=== PATIENT | male | born 1980 | race Caucasian/White ===

== ENCOUNTER 2020-08-24 11:52 | Emergency (ER) | payer MEDICAID, SELFPAY ==
[2020-08-24 12:03] VITALS: BP 112/69; PULSE 82; RESP 18; TEMP 36.7; O2SAT 97; BMI 21.9
--- NOTE | 2020-08-24 12:21 | ED.DENTAL ---
HPI - Dental/Oral General Chief complaint: Dental/Oral Stated complaint: DENTAL INFECTION Time Seen by Provider: 08/24/20 12:21 History of Present Illness HPI Narrative: Patient complains of left upper tooth infection that now has some facial swelling, no difficulty breathing or swallowing code denies any swelling under the tongue, no fever no chills Related Data Previous Rx's Medication Instructions Recorded clindamycin HCl 300 mg PO Q6H 7 Days #28 cap 08/24/20 ibuprofen 600 mg PO Q6H PRN #20 tab 08/24/20 Allergies Allergy/AdvReac Type Severity Reaction Status Date / Time No Known Allergies Allergy Verified 08/24/20 12:06 excessive shrimp consumption Allergy Unknown facial itch Uncoded 12/02/16 00:00 c Review of Systems Review of Systems: Positive for left facial pain and left-sided dental pain Negatives are no fever no chills no dizziness no weakness no difficulty swallowing or breathing no chest pain no shortness of breath no neck pain no rash Yes all other systems are reviewed and are negative PMFSH Past Medical History Source: nursing notes reviewed Medical History (Updated 08/25/20 @ 00:00 by Shane Vila) No known health problems Social History Social History Advance Directives: No Advance Directives Information Provided: No Physical Exam Vital Signs: Vital Signs: Last Vital Signs Temp 98.0 F 08/24/20 12:03 Pulse 82 08/24/20 12:03 Resp 18 08/24/20 12:03 BP 112/69 08/24/20 12:03 Pulse Ox 97 08/24/20 12:03 Body Mass Index 21.9 General appearance no acute distress, and cooperative The pharynx exam the pharynx is not red uvula is midline mucous membranes are moist, voice is normal Dental exam the left upper incisor is very tender to the touch and decayed and there is a fluctuant gum abscess above the tooth, there is no trismus no drooling no swelling under the tongue no impairment of breathing or swallowing The neck is supple Respiratory no distress Skin no rashes Neuro no focal deficit Course Course Course Narrative: The fluctuant gum abscess above the decayed tooth is aspirated with an 18 gauge needle with discharge of copious pus, and patient is started on antibiotic Discharge Plan Discharge Clinical Impression: Dental abscess Patient Disposition: Home, Self-Care Additional Instructions: Follow with dentist for removal of broken tooth We are starting antibiotics Frequent rinse with warm salt water return any any time for fever, worse pain and swelling, any worse condition Prescriptions: New clindamycin HCl 300 mg capsule 300 mg PO Q6H 7 Days Qty: 28 RF: 0 ibuprofen 600 mg tablet 600 mg PO Q6H PRN (Reason: pain) Qty: 20 RF: 0 Interventions: ED Discharge Assessment Last Done: 08/24/20 12:36 Discharge Date/Time: 08/24/20 12:37
== END 2020-08-24 12:37 | disposition home or self-care (01) ==
PROVIDERS: Emergency Provider Emergency Medicine; PCP Student in an Organized Health Care Education/Training Program
DX: K04.7 Periapical abscess without sinus (principal); Z79.899 Other long term (current) drug therapy
CPT/HCPCS: 99283

== ENCOUNTER → 2021-07-17 10:28 | Outpatient (BNVA) | payer MEDICAID, SELFPAY | PROVIDERS: PCP Student in an Organized Health Care Education/Training Program; Visit Provider Surgery | DX: L98.9 Disorder of the skin and subcutaneous tissue, unspecified (principal) | CPT/HCPCS: 99202 ==

== ENCOUNTER → 2022-01-14 07:21 | Outpatient (REF) | payer MEDICAID, SELFPAY ==
--- NOTE | 2022-01-14 | ECG_ITS ---
Hook-up date: 2022-01-14 07:21:00 Duration: 24:47:00 Test Indications: PALPITATIONS Medications: 75052 QRS complexes 10 Ventricular ectopics which represent <1 % of total QRS comp. 17 Supraventricular ectopics which represent <1 % of total QRS comp. * Paced QRS complexs which represent % of total QRS comp. VENTRICULAR ECTOPY 10 Isolated 0 Bigeminal Cycles 0 Couplets 0 Runs 0 Beats in Runs * Beats LONGEST at * BPM at :: -- * Beats FASTEST at * BPM at :: -- SUPRAVENTRICULAR ECTOPY 13 Isolated 2 Couplets 0 Runs 0 Beats in Runs * Beats LONGEST at * BPM at :: -- * Beats FASTEST at * BPM at :: -- HEART RATES 46 MIN at 03:19:34 2022-01-15 76 AVG 162 MAX at 12:15:08 2022-01-14 LONGEST RR 1.3760 secs at 03:19:28 2022-01-15 S-T LEVELS Channel 1 - 128 mm at 07:21:00 2022-01-14 - 128 mm at 07:21:00 2022-01-14 Channel 2 - 128 mm at 07:21:00 2022-01-14 - 128 mm at 07:21:00 2022-01-14 Channel 3 - 128 mm at 02:64:01 -- - 128 mm at 02:64:01 Underlying rhythm is sinus; Average ventricular rate 76/min; range 46-162/min; Rare supraventricular and ventricular ectopy; No sustained arrhythmias; 'flutter' in patient diary associated with sinus rhythm. Referred By: Azul Cannon Overread By: MANDEEP PATRICK
--- NOTE | 2022-01-14 07:30 | CA_ITS ---
Transthoracic Echocardiogram Patient (Last, First, Middle): Cassius Wilks, Gender: Male Date of : 1980 Age: 41 Procedure Date: 01/14/2022 Procedure Type: Transthoracic Echocardiogram Location: OP Height: 180.34 cm Weight: 72.58 kg BSA: 1.92 m2 Heart Rate: bpm BP: 115 / 56 mmHg Product Safety Technical Assistant: Referring MD: Azul Cannon MD Symptoms: TACHYCARDIA, PALPITATIONS Study Quality: Fair ECG Rhythm: Sinus Conclusions: - The left ventricular systolic function is normal. The calculated ejection fraction is 58% by biplane method. - No obvious valvular pathology seen on this study. Findings Left Ventricle Normal left ventricular cavity size. There is normal left ventricular wall thickness. The left ventricular systolic function is normal. The calculated ejection fraction is 58% by biplane method. There is no evidence of regional wall motion abnormalities. Diastolic function is normal for age. Right Ventricle Normal right ventricular cavity size and systolic function. Atria Both atria are normal in size. Aortic Valve There is a normal trileaflet aortic valve. There is no aortic valve stenosis. There is no aortic valve regurgitation. Mitral Valve The mitral valve appears normal. There is no mitral valve regurgitation. There is no mitral valve stenosis. Pulmonic Valve The pulmonic valve is likely normal. Tricuspid Valve Normal tricuspid valve structure. There is trace tricuspid valve regurgitation. The pulmonary artery systolic pressure is normal. Great Vessels The aortic annulus, sinuses of valsalva, and asc aorta are normal in size. Venous The inferior vena cava is normal in size and collapses greater than 50% with inspiration. Pericardium/Pleural There is no evidence of pericardial effusion. Prior Study Comparison No prior study available for comparison. Recommendations, Care & Conclusions No obvious valvular pathology seen on this study. Measurements 2D Linear Measurements IVSd: 0.81 0.6-0.9/0.6-1.0 cm LVIDd: 4.69 3.9-5.3/4.2-5.9 cm LVIDd Index: 2.44 2.4-3.2/2.2-3.1 cm/m2 LVIDs: 3.27 2.0-3.6 cm LVPWd: 0.81 0.7-1.1 cm Ao Root: 2.90 2.1-3.5 cm LA Diam: 3.00 2.7-3.8/3.0-4.0 cm LAIDs Index: 1.56 1.5-2.3 cm/m2 LV Mass: 154.13 67-162/88-224 g LV Mass Index: 80.27 43-95/49-115 g/m2 LVOT Diam: 2.10 3.0+(-)1.3 cm 2D Systolic Function EF 4C: 63.30 >55% EF 2C: 54.80 >55% EF BiP: 58.10 >55% Mitral Valve MV Pk E: 0.89 MV PK A: 0.58 MV Decel Time: 216.00 E/A: 1.50 E'Lateral: 15.60 E'Medial: 13.60 E/E' Med: 6.50 E/E' Lat: 5.70 PHT: 63.00 MVA PHT: 3.49 Decel Petroleum: 4.10 Aortic Valve AoV Pk Steve: 1.12 AoV Mn Steve: 0.73 AoV VTI: 0.27 AoV Pk Grad: 5.00 Aov Mn Grad: 3.00 JOSE Cont.VTI: 2.58 LVOT LVOT Pk Steve: 0.99 LVOT Mn Steve: 0.57 LVOT VTI: 0.20 LVOT Pk Grad: 4.00 LVOT Mn Grad: 2.00 LVOT Diam: 2.10 LVOT Area: 3.46 Diastolic Function MV Pk E: 0.89 MV Pk A: 0.58 E/A: 1.50 E'Medial: 13.60 E/E' Med: 6.50 E' Laterial: 15.60 E/E' Lat: 5.70 Right Ventricle TAPSE (mm): 24.00 TVS' Steve: 12.00 Tricuspid Valve TR Pk Steve: 2.10 TR Pk Grad: 18.00 RA Press: 3.00 RVSP: 21.00 Great Vessels Aorta Ao Root-2D: 2.90 2.0-3.7 cm Ao Asc: 2.80 2.1-3.4 cm Pulmonary Valve PV Pk Steve: 1.05 Peak PV Grad: 4.00 Updated in Other Vendor System with Status of Final Don Calle MD electronically signed on 01/16/2022 11:12:23 AM with status of Final
== END ==
LOC: HO.CARD 07:21
PROVIDERS: PCP Student in an Organized Health Care Education/Training Program; Visit Provider Family Medicine
DX: R00.0 Tachycardia, unspecified (principal); R00.2 Palpitations
CPT/HCPCS: 93226; 93306

== ENCOUNTER → 2022-04-27 13:43 | Outpatient (BNVA) | payer MEDICAID, SELFPAY | PROVIDERS: PCP Student in an Organized Health Care Education/Training Program; Referring Provider Student in an Organized Health Care Education/Training Program; Visit Provider Internal Medicine | DX: R00.2 Palpitations (principal); F17.210 Nicotine dependence, cigarettes, uncomplicated; Z71.6 Tobacco abuse counseling | CPT/HCPCS: 93005; 99202 ==

== ENCOUNTER 2022-06-26 02:38 | Emergency (ER) | payer MEDICAID, SELFPAY ==
[2022-06-26 02:41] VITALS: BP 102/64; PULSE 78; RESP 18; TEMP 36.7; O2SAT 98; BMI 22.3
--- NOTE | 2022-06-26 03:16 | ED_ITS ---
HPI - Dental/Oral General Chief complaint: Dental/Oral Stated complaint: toothache Time Seen by Provider: 06/26/22 03:16 Source: patient Mode of arrival: ambulatory Limitations: no limitations History of Present Illness HPI Narrative: Patient with chronic dental caries with loss of teeth multiple places comes here for pain in the upper jaw but last few days spreading to the left maxilla now no fever no chills has increased sensation to cold and hot Related Data Home Medications Medication Instructions Recorded Confirmed buprenorphine 8 mg-naloxone 2 mg 20 mg sublingual DAILY 04/27/22 04/27/22 sublingual film (Suboxone) Previous Rx's Medication Instructions Recorded clindamycin HCl 300 mg capsule 300 mg PO QID #40 caps 06/26/22 oxycodone 5 mg tablet 5 mg PO Q6H PRN pain #20 tabs 06/26/22 Allergies Allergy/AdvReac Type Severity Reaction Status Date / Time Penicillins Allergy Mild Unknown Verified 04/27/22 13:58 excessive shrimp consumption Allergy Unknown facial itch Uncoded 04/27/22 13:58 c Review of Systems Review of Systems: Yes all other systems are reviewed and are negative PMFSH Past Medical History Medical History No known health problems Smoking Surgical History H/O excision of mass [place] teeth removed Family History Family History Paternal Grandmother Breast cancer Paternal Aunt Breast cancer Father Lymphoma Social History Social History Alcohol intake: never Patient Tobacco Use Status: Former Tobacco user Advance Directives: No Advance Directives Information Provided: Yes Physical Exam 2 Vital Signs: Vital Signs: Last Vital Signs Temp 98.0 F 06/26/22 02:41 Pulse 78 06/26/22 02:41 Resp 18 06/26/22 02:41 BP 102/64 06/26/22 02:41 Pulse Ox 98 06/26/22 02:41 O2 Del Method 06/26/22 02:41 BMI result Body Mass Index 22.3 Appearance: Alert. Oriented X3. No acute distress. Eyes: PERRLA, No Nystagmus ENT: Pharynx normal. Oral Mucosa moist Neck: Normal inspection. Neck supple. CVS: Normal heart rate and rhythm. Pulses normal. Respiratory: No respiratory distress. Equal air entry bilateral, Neuro: Oriented X 3. No motor deficit. HEENT: Teeth image: 1. Multiple tooth loss local tenderness no significant gum swelling Discharge Plan Discharge Clinical Impression: Dental caries Patient Disposition: Home, Self-Care Instructions: Toothache (ED) Additional Instructions: Take antibiotic as prescribed Follow-up with dentist Prescriptions: New clindamycin HCl 300 mg capsule 300 mg PO QID Qty: 40 0RF oxycodone 5 mg tablet 5 mg PO Q6H PRN (Reason: pain) Qty: 20 0RF Rx Instructions: Partial Fill upon patient request. No Action buprenorphine-naloxone [Suboxone] 8-2 mg film 20 mg sublingual DAILY
[2022-06-26] MEDS: Clindamycin HCL 300 MG CAPSULE PO (03:31)
[2022-06-26] MEDS: oxyCODONE HCl Immed Release 5 MG TABLET PO (03:31)
== END 2022-06-26 03:35 | disposition home or self-care (01) ==
PROVIDERS: Emergency Provider Internal Medicine; PCP Student in an Organized Health Care Education/Training Program
DX: K08.89 Other specified disorders of teeth and supporting structures (principal); K08.409 Partial loss of teeth, unspecified cause, unspecified class
CPT/HCPCS: 99283

== ENCOUNTER 2024-04-30 04:44 | Emergency (ER) | payer OTHER, SELFPAY ==
[2024-04-30 04:48] VITALS: BP 126/76; PULSE 92; RESP 20; TEMP 36.5; O2SAT 98; BMI 23.7
--- NOTE | 2024-04-30 06:06 | ED.GENADULT ---
HPI - General Adult General Chief complaint: ETOH/Substance Use Stated complaint: withdrawl Time Seen by Provider: 04/30/24 06:06 History of Present Illness ED Provider: Zaynab GUZMAN narrative: The patient is a 44-year-old male who says that he has been on Suboxone for a long time. He is on Suboxone 8/2 films. He takes these twice a day. He says that during the last month he used few extra doses and ran out of his Suboxone before his next month supply. He comes to the emergency room because he is feeling symptoms of withdrawal. His last dose was yesterday morning when he took a half a film. He does not feel ill otherwise. Related Data Home Medications ?Medication ?Instructions ?Recorded ?Confirmed buprenorphine 8 mg-naloxone 2 mg 20 mg sublingual DAILY 04/27/22 04/27/22 sublingual film (Suboxone) Previous Rx's ?Medication ?Instructions ?Recorded clindamycin HCl 300 mg capsule 300 mg PO QID #40 caps 06/26/22 oxycodone 5 mg tablet 5 mg PO Q6H PRN pain #20 tabs 06/26/22 buprenorphine 8 mg-naloxone 2 mg 1 film buccal BID #2 ea 04/30/24 sublingual film (Suboxone) Allergies Allergy/AdvReac Type Severity Reaction Status Date / Time Penicillins Allergy Mild Unknown Verified 04/30/24 04:50 excessive shrimp consumption Allergy Unknown facial itch Uncoded 04/27/22 13:58 c Review of Systems Review of Systems: Yes all other systems are reviewed and are negative PMFSH Past Medical History Medical History No known health problems Smoking Surgical History H/O excision of mass [place] teeth removed Family History Family History Paternal Grandmother Breast cancer Paternal Aunt Breast cancer Father Lymphoma Social History Social History Unable to assess alcohol history related to: Unknown Alcohol intake: never Patient Tobacco Use Status: Former Tobacco user Substance Use Type: Prescription Drugs Substance Use Type Other:: suboxone Advance Directives: No Do you have a plan to hurt others: No Plan Physical Exam ED Vital Signs: Vital Signs - 24 hr 04/30/24 04:48 04/30/24 06:17 Temperature 97.7 F 97.7 F Pulse Rate 92 92 Respiratory Rate 20 20 Blood Pressure 126/76 126/76 Pulse Oximetry 98 98 Oxygen Delivery Method Room Air Room Air BMI result Body Mass Index 23.7 Const Other: The patient is awake and alert. The patient does not seem in acute distress. HENMT Other: Face is symmetrical. Mucous membranes moist. Eyes General: appearance normal, both eyes and all related structures Neck Neck: Yes full ROM Resp Effort & Inspection: normal respiratory effort Skin Other: Skin is dry and unremarkable Neuro Other: The patient is awake and alert with a normal mental status. Cognition is normal. Cranial nerves are grossly intact. The patient moves all extremities normally. The patient has a normal gait. Extrem Other: No peripheral edema Medications Administered Discontinued Medications Generic Name Dose Route Start Last Admin Trade Name Freq PRN Reason Stop Dose Admin Buprenorphine/Naloxone 1 film 04/30/24 06:09 04/30/24 06:12 Buprenorphine/Naloxone 8/2 Mg Film SUBLINGUAL 04/30/24 06:10 1 film ONCE ONE Administration Medical Decision Making Medical Decision Making [facility] Narrative: Patient seems to have a history of opioid use disorder and long-term Suboxone use. He has run out of his Suboxone early by overusing it. He does not seem acutely ill otherwise. He was given a film of 8 mg/2 mg of Suboxone this morning. I will write a prescription for 2 additional films of this dose. He should be able to get his usual monthly supply tomorrow on Wednesday. Discharge Plan Discharge Clinical Impression: Opioid use disorder Patient Disposition: Home, Self-Care Additional Instructions: You received a dose of Suboxone here. I have sent a prescription for 2 additional films up Suboxone to get you through till tomorrow when you can get an additional prescription through your regular prescriber. Return to the emergency room if significantly worse. Prescriptions: New buprenorphine-naloxone [Suboxone] 8-2 mg film 1 film buccal BID Qty: 2 0RF No Action clindamycin HCl 300 mg capsule 300 mg PO QID Qty: 40 0RF oxycodone 5 mg tablet 5 mg PO Q6H PRN (Reason: pain) Qty: 20 0RF Rx Instructions: Partial Fill upon patient request. buprenorphine-naloxone [Suboxone] 8-2 mg film 20 mg sublingual DAILY Referrals: Esthela Randolph MD [Primary Care Provider] - Interventions: ED Discharge Assessment Last Done: 04/30/24 06:17 Discharge Date/Time: 04/30/24 06:18 Print Language: Belarusian
[2024-04-30] MEDS: Buprenorphine/Naloxone 8/2 mg FILM 1 FILM SUBLINGUAL (06:12)
[2024-04-30 06:17] VITALS: BP 126/76; PULSE 92; RESP 20; TEMP 36.5; O2SAT 98
== END 2024-04-30 06:18 | disposition home or self-care (01) ==
PROVIDERS: Emergency Provider Emergency Medicine; PCP Student in an Organized Health Care Education/Training Program
DX: F11.23 Opioid dependence with withdrawal (principal); Z79.899 Other long term (current) drug therapy; Z87.891 Personal history of nicotine dependence
CPT/HCPCS: 99283; 99284

== ENCOUNTER 2024-06-14 10:51 | Emergency (ER) | payer OTHER, SELFPAY ==
[2024-06-14 11:09] VITALS: BP 113/70; PULSE 89; RESP 18; TEMP 36.7; O2SAT 98; BMI 22.1
--- NOTE | 2024-06-14 11:09 | ED_ITS ---
HPI - Dental/Oral General Chief complaint: Dental/Oral Stated complaint: Dental Infection Time Seen by Provider: 06/14/24 11:15 Source: patient, RN notes reviewed and old records reviewed Mode of arrival: ambulatory History of Present Illness ED Provider: Liseth Almaguer PA-C HPI Narrative: 44 yo M with no significant past medical history presenting to the ED c/o left- sided lower dental pain with suspected infection x2 days. States has been using chlorhexidine mouth rinse at home for 2 days without relief. Denies fever, chills, drainage from area, facial/oral swelling, difficulty or inability to swallow Related Data Home Medications ?Medication ?Instructions ?Recorded ?Confirmed buprenorphine 8 mg-naloxone 2 mg 20 mg sublingual DAILY 04/27/22 04/27/22 sublingual film (Suboxone) Previous Rx's ?Medication ?Instructions ?Recorded clindamycin HCl 300 mg capsule 300 mg PO QID #40 caps 06/26/22 oxycodone 5 mg tablet 5 mg PO Q6H PRN pain #20 tabs 06/26/22 buprenorphine 8 mg-naloxone 2 mg 1 film buccal BID #2 ea 04/30/24 sublingual film (Suboxone) amoxicillin 875 mg-potassium 1 tab PO BID 7 days #14 tabs 06/14/24 clavulanate 125 mg tablet Allergies Allergy/AdvReac Type Severity Reaction Status Date / Time No Known Allergies Allergy Verified 06/14/24 11:11 Review of Systems Review of Systems: Yes all other systems are reviewed and are negative Constitutional: Constitutional: Reports as per [facility] Past Medical History Attestation statement: The following information was validated with the patient. Source: old records reviewed Medical History Smoking No known health problems Surgical History H/O excision of mass [place] teeth removed Family History Family History Paternal Grandmother Breast cancer Paternal Aunt Breast cancer Father Lymphoma Social History Social History Unable to assess alcohol history related to: Unknown Alcohol intake: never Patient Tobacco Use Status: Former Tobacco user Substance Use Type: Prescription Drugs Physical Exam Vital Signs: Vital Signs: Last Vital Signs Temp 98.0 F 06/14/24 11:09 Pulse 89 06/14/24 11:09 Resp 18 06/14/24 11:09 BP 113/70 06/14/24 11:09 Pulse Ox 98 06/14/24 11:09 O2 Del Method Room Air 06/14/24 11:09 BMI result Body Mass Index 22.1 Const: General: cooperative, healthy appearing and no acute distress Orientation/consciousness: patient oriented x3 Limitations: no limitations HEENT: Other: + left lower 3rd molar broken. + mild gi ngival erythema/tenderness. No fluctuance/induration Head: Yes normal to inspection and Yes atraumatic Ears: hearing grossly normal bilaterally and external ears normal General nose exam: Normal external nose present Face and sinus: Yes normal facial exam Mouth: Normal oral and palatal mucosa present and no drooling Teeth and gingiva: caries, poor dentition and other Throat: Yes uvula midline, No peritonsillar mass, No uvula laterally displaced and No uvular edema Eyes: General: appearance normal, both eyes and all related structures EOM: EOMs intact bilaterally Neck: Neck: Yes normal visual inspection and Yes no meningeal signs Resp: Effort & Inspection: normal respiratory effort, no respiratory distress and no stridor Cardio: Rate: regular rate Skin: Rashes: no rashes Wounds: no wounds Neuro: General: patient oriented x3, tone normal and no meningeal signs Cranial nerves: Yes CN's II-XII intact bilaterally Gait exam (Neuro): Normal gait present Extrem: General: Yes normal to inspection Medical Decision Making Medical Decision Making MDM Narrative: 44 yo M with no significant past medical history presenting to the ED c/o left- sided lower dental pain with suspected infection x2 days. On exam vital signs stable, NAD, nontoxic appearing, physical exam as noted above. Concern for gingivitis vs dental infection/abscess. No drainable collection at this time. No appreciable facial swelling. No airway compromise. Plan: P.o. antibiotics, dentistry follow-up Please refer to course for remaining clinical decision making, interpretation of labs/imaging results, and discussions with consultants and/or family members. Results discussed with patient including worrisome signs and symptoms and strict return precautions, and when to return to the emergency department. They verbalized understanding and feel safe for discharge at this time. Differential Diagnosis Differential Diagnoses: The differential diagnosis associated with the presentation includes As above External Record Review External record reviewed: Inpatient record, Office record, Outpatient record, Prior outpatient labs, Prior outpatient radiology, Primary care record and Outside ED record Tests considered The following testing was considered but not selected: As above Prescription Management I considered prescription management with: Pain Medication and Antibiotic Chronic Conditions Patient?s care impacted by: Other Social Determinants Patient?s care significantly limited by Social Determinants of Health including: Inadequate housing and Alcoholism and drug addiction in family Discharge Plan Discharge Clinical Impression: Dental infection, Dental caries Patient Disposition: Home, Self-Care Instructions: Dental Abscess (ED) Additional Instructions: Augmentin as an antibiotic please take as prescribed until completion Take Tylenol and ibuprofen for pain/swelling You can continue to use mouthwash as needed You need to follow up with a dentist If her symptoms persist or worsen, pain becomes facial swelling difficulty inability to swallow return to the ED Prescriptions: New amoxicillin-pot clavulanate 875-125 mg tablet 1 tab PO BID 7 Days Qty: 14 0RF No Action clindamycin HCl 300 mg capsule 300 mg PO QID Qty: 40 0RF oxycodone 5 mg tablet 5 mg PO Q6H PRN (Reason: pain) Qty: 20 0RF Rx Instructions: Partial Fill upon patient request. buprenorphine-naloxone [Suboxone] 8-2 mg film 1 film buccal BID Qty: 2 0RF buprenorphine-naloxone [Suboxone] 8-2 mg film 20 mg sublingual DAILY Referrals: Trey Carballo [Dentist] - Femi Reddy DMD [Dentist] - Kevin Kim DMD [Dentist] - Print Language: Tamazight
[2024-06-14 11:19] VITALS: BP 113/70; PULSE 89; RESP 18; TEMP 36.7; O2SAT 98
== END 2024-06-14 11:21 | disposition home or self-care (01) ==
PROVIDERS: Emergency Provider Student in an Organized Health Care Education/Training Program; PCP Student in an Organized Health Care Education/Training Program
DX: K02.9 Dental caries, unspecified (principal)
CPT/HCPCS: 99282; 99283

== ENCOUNTER 2024-10-08 17:26 | Emergency (ER) | payer OTHER, SELFPAY ==
--- NOTE | ~2024-10-08 | CT_ITS ---
CLINICAL HISTORY: Left mouth floor cellulitis, no fluctuation. CT soft tissue neck with contrast Comparison: None Findings: The visualized intracranial contents are unremarkable. Pharyngeal mucosal space, parapharyngeal fat, prevertebral tissues, and epiglottis are within normal limits. Scattered prominent lymph nodes throughout the neck, may be reactive however are nonspecific. Diffuse bilateral maxillary and mandibular periapical lucencies, consistent with periodontal disease. Finding is most pronounced involving the left mandibular 3rd molar tooth. Minimal soft tissue edema with subcutaneous stranding and prominent lymph nodes along the left sublingual and submandibular space with mild thickening of the platysma. No discrete collections. No obstructing salivary duct stones. The left submandibular gland is mildly prominent relative to the right. No suspicious thyroid nodules. Mild paraseptal emphysema. No acute fracture or dislocation. Exaggeration of the cervical lordosis. IMPRESSION: 1. Diffuse odontogenic abscesses pronounced on the left. 2. Inflammatory changes in the left sublingual and submandibular spaces, may be secondary to above or sialoadenitis. This document has been electronically signed by: Dio Leung MD on 10/08/2024 19:39:41
[2024-10-08 17:32] VITALS: BP 134/72; PULSE 114; RESP 20; TEMP 39.1; O2SAT 98; BMI 24.4
--- NOTE | 2024-10-08 17:32 | ED_ITS ---
HPI - General Adult General Chief complaint: Dental/Oral Stated complaint: tooth pain/infection Time Seen by Provider: 10/08/24 17:59 Source: patient Mode of arrival: ambulatory Limitations: no limitations History of Present Illness ED Provider: DR. Ramey HPI narrative: 44-year-old male came in for evaluation of possible mouth infection since last week. Patient patient has widespread decay of his tooth with problem with the STs, infection started on right side of the lower gum and face that has improved after using chlorhexidine scrubs, patient he is here today because the left side now is tender and infected, having trouble chewing food due to pain, patient is complaining of subjective fever, found to be tachycardic in the emergency department. Patient did not take any antibiotic prior to her presentation today. Related Data Home Medications ?Medication ?Instructions ?Recorded ?Confirmed buprenorphine 8 mg-naloxone 2 mg 20 mg sublingual DAILY 04/27/22 04/27/22 sublingual film (Suboxone) Previous Rx's ?Medication ?Instructions ?Recorded clindamycin HCl 300 mg capsule 300 mg PO QID #40 caps 06/26/22 oxycodone 5 mg tablet 5 mg PO Q6H PRN pain #20 tabs 06/26/22 buprenorphine 8 mg-naloxone 2 mg 1 film buccal BID #2 ea 04/30/24 sublingual film (Suboxone) amoxicillin 875 mg-potassium 1 tab PO BID 7 days #14 tabs 06/14/24 clavulanate 125 mg tablet amoxicillin 875 mg-potassium 1 tab PO BID #20 tabs 10/08/24 clavulanate 125 mg tablet Allergies Allergy/AdvReac Type Severity Reaction Status Date / Time No Known Allergies Allergy Verified 10/08/24 17:33 Review of Systems 2 Review of Systems: All other systems are reviewed and are negative Constitutional: Reports as per HPI and Reports no additional constitutional complaints Eyes: Reports as per HPI and Reports no additional eye complaints Reports system reviewed and no additional complaints, except as documented Cardiovascular: Reports as per HPI and Reports no additional cardiovascular complaints Respiratory: Reports as per HPI and Reports no additional respiratory complaints Gastrointestinal: Reports as per HPI and Reports no additional gastrointestinal complaints Genitourinary: Reports no additional female genitourinary complaints Musculoskeletal: Reports no additional musculoskeletal complaints Skin/Breast: Reports system reviewed and no additional complaints, except as docu Psychiatric: Reports no additional psychiatric complaints Endocrine: Reports no additional endocrine complaints Hematologic/Lymphatic: Reports no additional hematologic/lymphatic complaints Allergic/Immunologic: Reports no additional allergic/immunologic complaints Reports system reviewed and no additional complaints, except as documented and Reports Abnormal speech present [facility] Past Medical History Medical History Smoking No known health problems Surgical History H/O excision of mass [place] teeth removed Family History Family History Paternal Grandmother Breast cancer Paternal Aunt Breast cancer Father Lymphoma Social History Social History Unable to assess alcohol history related to: Unknown Alcohol intake: former Patient Tobacco Use Status: Former Tobacco user Smoked in Last 30 Days: Yes Use of substances other than those prescribed or required for medical reasons: Yes Substance Use Type: Marijuana Substance Use Frequency: Chronic Longstanding Advance Directives: No Advance Directives Information Provided: No Physical Exam ED Vital Signs: Vital Signs - 24 hr 10/08/24 17:32 10/08/24 18:00 Temperature 102.3 F H 99.1 F Pulse Rate 114 H 113 H Respiratory Rate 20 20 Blood Pressure 134/72 103/62 Pulse Oximetry 98 96 Oxygen Delivery Method Room Air Room Air BMI result Body Mass Index 24.4 Vital signs have been reviewed and appear to be correct. Blood pressure elevated. Heart rate elevated, Respiratory rate normal. Febrile, Oxygen saturation normal. Appearance: Alert. Oriented X3. No acute distress. Head: Normal external exam. Normocephalic. Atraumatic. No Lopez signs noted. No raccoon eyes noted Eyes: PERRLA. EOMI. Conjunctiva and sclera normal. Eyelids normal. ENT: TM's Normal. Pharynx normal. Uvula midline. Moist mucous membranes. No trismus noted. No drooling noted. No muffled voice noted. Neck: Normal inspection. Neck supple. FROM. No adenopathy. Thyroid Normal. No meningeal signs. No neck mass noted. CVS: Normal heart rate and rhythm. Heart sound normal. No murmurs noted. Pulses normal throughout. Respiratory: No respiratory distress. Painless inspiration. Breath sounds normal. No wheezes/rales/rhonchi noted. Chest nontender. No accessory muscle usage noted or decreased air movement noted. Abdomen: Soft and nontender. Bowel sounds normal in all 4 quadrants. No distention noted. No organomegaly noted. No visible injury noted. Back: No CVA tenderness. Full range of motion noted. Skin: Skin warm and dry. Normal skin color. Normal skin turgor. No rashes/lesions/lacerations noted. Extremities: No lower extremity edema. Extremities exhibit normal range of motion. Extremities nontender. Neuro: Oriented X 3. Cranial nerve exam: II-XII are grossly intact No motor deficit. No sensory deficit. Reflexes normal. [facility] Teeth image: 2 1. Widespread decay, erythema of the gum around, no fluctuation, no abscess is appreciated. 2. Widespread decay, erythema of the gum around, no fluctuation, no abscess is appreciated. 3. Widespread decay, erythema of the gum around, no fluctuation, no abscess is appreciated. Neck Neck images: 2 1. Area of swelling, mild tenderness, no redness, no hotness. Course Course Course Narrative: This is an RME: Additional HPI, ROS, PE not included below will be deferred to primary provider. RME assessment and note performed by: Luz Ybarra PA-C This is a 44-year-old male, with no known medical problems, who presents emergency department with complaints of dental pain. Reports on Wednesday, October 03, he had right-sided dental pain. He states that this got better up until yesterday where he developed severe left-sided dental pain. He reports that he has had a hard time chewing and swallowing. He is currently on Suboxone, states that he took an extra dose to help with pain however this did not help. Patient febrile and tachycardic in triage. Patient will be brought back to the emergency room for further evaluation. Plan: Labs, EKG, Tylenol, further ER evaluation needed. Reevaluation(s) Reevaluation #1: case discussed with Dr. López and the plan was to admit the patient for IV antibiotic and follow-up as an outpatient with his dentist, because patient is feel better with decreased swelling on his left facial site after received left wrist IV antibiotic, patient wanted try oral antibiotic and he will follow-up with his dentist an outpatient. Will cancel admission and discharge on amoxicillin. Time: 22:42 Medications Administered Discontinued Medications Generic Name Dose Route Start Last Admin Trade Name Marla PRN Reason Stop Dose Admin Acetaminophen 975 mg 10/08/24 17:37 10/08/24 17:38 Acetaminophen 325 Mg Tablet PO 10/08/24 17:38 975 mg ONCE ONE Administration Iohexol 100 ml 10/08/24 18:54 10/08/24 18:54 Iohexol 350 Mg/Ml 100 Ml Infus..Btl IV 10/08/24 18:55 60 ml ONCE ONE Administration Medical Decision Making Differential Diagnosis Differential Diagnoses: The differential diagnosis associated with the presentation includes ( Dental abscess, gingivitis, sialadenitis, soft tissue neck infection,) Admission/Observation Consideration of admission/observation: Escalation of care including admission/observation considered Lab Data MDM Lab Attestation statement: I reviewed the patient's lab results. 10/08/24 18:06 10/08/24 18:06 Labs: Lab Results 10/08/24 Range/Units 18:06 WBC 9.4 (4.8-10.8) X10*3/uL RBC 4.33 L (4.60-5.80) X10*6/uL Hgb 14.1 (14.0-18.0) g/dl Hct 39.5 L (42.0-52.0) % MCV 91.2 (80.0-98.0) fL MCH 32.6 (27.0-33.0) pg MCHC 35.7 (31.0-36.0) g/dl RDW 13.1 (11.0-16.0) % Plt Count 198 (160-400) X10*3/uL MPV 9.1 L (9.4-12.4) fL Immature Gran % (Auto) 0.3 (0.0-0.4) % Neut % (Auto) 68.8 (45-73) % Lymph % (Auto) 19.5 L (20-40) % [place] % (Auto) 11.3 H (2-11) % Eos % (Auto) 0.0 (0-4) % Baso % (Auto) 0.1 (0-2) % Lymph # (Auto) 1.8 (1.2-4.9) X10*3/uL [place] # (Auto) 1.1 (0.1-1.2) X10*3/uL Eos # (Auto) 0.0 (0.0-0.4) X10*3/uL Baso # (Auto) 0.0 (0.0-0.2) X10*3/uL Abs Immat Gran (auto) 0.03 (0.00-0.03) X10*3/uL Absolute Neuts (auto) 6.4 (2.0-8.3) x10*3/uL Absolute Nucleated RBC 0.000 (0.0-0.012) X10*3/uL Nucleated RBC % (auto) 0.0 (0.0-0.2) /100WBC Sodium 134 L (135-145) mmol/L Potassium 3.8 (3.3-5.1) mmol/L Chloride 99 (96-108) mmol/L Carbon Dioxide 21 L (22-29) mmol/L Anion Gap 18 (12-20) BUN 12 (9-16) mg/dL Creatinine 0.71 (0.5-1.4) mg/dL Estim Creat Clear Calc 138.5 Estimated GFR > 60 Random Glucose 87 (60-115) mg/dL Lactic Acid 0.7 (0.5-2.0) mmol/L Calcium 9.2 (8.4-10.2) mg/dL Total Bilirubin 1.0 (0.0-1.0) mg/dL Direct Bilirubin 0.3 (0.0-0.5) mg/dL AST 22 (5-37) U/L ALT 15 (0-40) U/L Alkaline Phosphatase 82 (39-117) U/L Troponin I High Sens < 2.7 (<3.5-35.0) ng/L Total Protein 7.4 (6.5-8.0) g/dL Albumin 4.6 (3.5-5.0) g/dL Independent Interpretation I performed an independent interpretation of an: CT Scan ( soft tissue neck:The visualized intracranial contents are unremarkable. Pharyngeal mucosal space, parapharyngeal fat, prevertebral tissues, and epiglottis are within normal limits. Scattered prominent lymph nodes throughout the neck, may be reactive however are nonspecific. Diffuse bilateral maxi) Radiology Impression Discussion of test interpretation with radiology: I have reviewed the radiologist's reading. Discharge Plan Discharge Clinical Impression: Dental caries, Gingivitis Patient Disposition: Home, Self-Care Instructions: Gingivitis (ED) Additional Instructions: follow-up with your dentist within 1 week. Prescriptions: New amoxicillin-pot clavulanate 875-125 mg tablet 1 tab PO BID Qty: 20 0RF No Action clindamycin HCl 300 mg capsule 300 mg PO QID Qty: 40 0RF oxycodone 5 mg tablet 5 mg PO Q6H PRN (Reason: pain) Qty: 20 0RF Rx Instructions: Partial Fill upon patient request. amoxicillin-pot clavulanate 875-125 mg tablet 1 tab PO BID 7 Days Qty: 14 0RF buprenorphine-naloxone [Suboxone] 8-2 mg film 1 film buccal BID Qty: 2 0RF buprenorphine-naloxone [Suboxone] 8-2 mg film 20 mg sublingual DAILY Referrals: Esthela Randolph MD [Primary Care Provider] - Print Language: Moldovan
[2024-10-08] MEDS: Acetaminophen 325 MG TABLET 975 MG PO (17:38)
--- NOTE | 2024-10-08 17:38 | ECG_ITS ---
Test Reason : tachycardia Blood Pressure : */* mmHG Vent. Rate : 106 BPM Atrial Rate : 106 BPM P-R Int : 134 ms QRS Dur : 92 ms QT Int : 336 ms P-R-T Axes : 74 -10 66 degrees QTcB Int : 446 ms Sinus tachycardia Otherwise normal ECG When compared with ECG of 10-Jun-2005 03:17, Questionable change in QRS axis Referred By: Luz Ybarra Electronically Signed By: MANDEEP PATRICK
--- NOTE | 2024-10-08 17:43 | PC.NURSE ---
Charge nurse notified of potential sepsis alert
[2024-10-08 18:00] VITALS: BP 103/62; PULSE 113; RESP 20; TEMP 37.3; O2SAT 96
[2024-10-08 18:12] LABS: MANUAL DIFF FLAG NO
--- NOTE | 2024-10-08 18:12 | PC.NURSE ---
Patient reports on wed he sstarted having right lower sided tooth pain, called his MD who prescribed him chlorhexadine. Right sided pain was gone by wednesday but woke up sat right left lower gum pain. Was in [facility] and drove home today as pain was worsening. Febrile, and tachy provider notified and in to see patient. Labs ordered from triage were sent to lab. 20g iv placed in right ac. Patient denies drainage from area.
[2024-10-08 18:14] LABS: Basophils Percent Auto 0.1 % (0-2); Hematocrit 39.5 % (42.0-52.0); Hemoglobin 14.1 g/dl (14.0-18.0); Imm Gran Abs Auto 0.03 X10*3/uL (0.00-0.03); Imm Gran Pct Auto 0.3 % (0.0-0.4); Lymphocytes Absolute Auto 1.8 X10*3/uL (1.2-4.9); Lymphocytes Percent Auto 19.5 % (20-40); Mean Corpuscular HGB Conc 35.7 g/dl (31.0-36.0); Mean Corpuscular Hemoglobin 32.6 pg (27.0-33.0); Mean Corpuscular Volume 91.2 fL (80.0-98.0); Mean Platelet Volume 9.1 fL (9.4-12.4); Monocytes Absolute Auto 1.1 X10*3/uL (0.1-1.2); Monocytes Percent Auto 11.3 % (2-11); Neutrophils Absolute Auto 6.4 x10*3/uL (2.0-8.3); Neutrophils Percent Auto 68.8 % (45-73); Platelet Count 198 X10*3/uL (160-400); Red Blood Count 4.33 X10*6/uL (4.60-5.80); Red Cell Distribution Width 13.1 % (11.0-16.0); White Blood Count 9.4 X10*3/uL (4.8-10.8)
[2024-10-08 18:29] LABS: Alanine Aminotransferase 15 U/L (0-40); Albumin Level 4.6 g/dL (3.5-5.0); Alkaline Phosphatase 82 U/L (39-117); Anion Gap 18 (12-20); Aspartate Amino Transferase 22 U/L (5-37); Bilirubin Direct 0.3 mg/dL (0.0-0.5); Blood Urea Nitrogen 12 mg/dL (9-16); Calcium 9.2 mg/dL (8.4-10.2); Carbon Dioxide 21 mmol/L (22-29); Chloride 99 mmol/L (96-108); Creatinine Clr Calc Pharmacy 138.5; Estimated Glomerular Filt Rate > 60; Glucose Random 87 mg/dL (60-115); Potassium 3.8 mmol/L (3.3-5.1); Sodium 134 mmol/L (135-145); Total Protein 7.4 g/dL (6.5-8.0)
[2024-10-08 18:30] LABS: Lactic Acid 0.7 mmol/L (0.5-2.0)
[2024-10-08 18:38] LABS: Troponin-I High Sensitivity < 2.7 ng/L (<3.5-35.0)
[2024-10-08] MEDS: iohexoL 350 MG/ML 100 ML INFUS..BTL IV (18:54)
[2024-10-08] MEDS: Amoxicillin/Potassium Clav 875 MG TABLET PO (23:33)
[2024-10-08 23:38] VITALS: BP 117/65; PULSE 86; RESP 16; TEMP 36.5; O2SAT 97
== END 2024-10-08 23:39 | disposition home or self-care (01) ==
PROVIDERS: Physician Assistant Medical; Emergency Provider Emergency Medicine; PCP Student in an Organized Health Care Education/Training Program
DX: K12.2 Cellulitis and abscess of mouth (principal); K02.9 Dental caries, unspecified; K05.10 Chronic gingivitis, plaque induced; R00.0 Tachycardia, unspecified; Z79.899 Other long term (current) drug therapy; Z87.891 Personal history of nicotine dependence
CPT/HCPCS: 36415; 70491; 80048; 80076; 83605; 84484; 85025; 87040; 93005; 99285; Q9967

== ENCOUNTER → 2024-10-08 17:38 | Outpatient (BNV) | payer OTHER, SELFPAY | PROVIDERS: Emergency Provider Emergency Medicine; PCP Student in an Organized Health Care Education/Training Program; Visit Provider Internal Medicine | DX: R00.0 Tachycardia, unspecified (principal) | CPT/HCPCS: 93010 ==

== ENCOUNTER → 2024-10-08 18:12 | Outpatient (BNV) | payer OTHER, SELFPAY | PROVIDERS: Emergency Provider Emergency Medicine; PCP Student in an Organized Health Care Education/Training Program; Visit Provider Radiology Diagnostic Radiology | DX: K12.2 Cellulitis and abscess of mouth (principal) | CPT/HCPCS: 70491 ==

== ENCOUNTER 2024-11-27 01:50 | Emergency (ER) | payer OTHER, SELFPAY ==
[2024-11-27 01:53] VITALS: BP 117/74; PULSE 87; RESP 16; TEMP 36.4; O2SAT 97; BMI 23.7
--- NOTE | 2024-11-27 02:22 | ED_ITS ---
HPI - General Adult General Chief complaint: Dental/Oral Stated complaint: tooth infection Time Seen by Provider: 11/27/24 02:22 Source: patient Mode of arrival: ambulatory Limitations: no limitations History of Present Illness ED Provider: Tiffany Yee PA-C HPI narrative: Patient is a 44 year old assigned male at with a history of poor dentition presenting to the emergency department today with left lower dental pain / infection. Patient states that he has extractions scheduled for his left lower molars but they became painful and inflamed in the last 2 days. Patient denies a ny dizziness, lightheadedness, abdominal pain, nausea, vomiting, fever, chills, blurry vision, double vision, loss of vision, chest pain, difficulty breathing, shortness of breath, back pain, night sweats, pain with urination, increased urinary frequency, increased urinary urgency, blood in his urine or stool, syncope or a near syncopal episode, recent trauma or falls, bowel incontinence, bladder incontinence, or any other complaints at this time. Onset (ago): day(s) (2) Location: mouth and left Relieving factors: none Exacerbating factors: none Associated symptoms: denies other symptoms Treatments prior to arrival: none Related Data Home Medications ?Medication ?Instructions ?Recorded ?Confirmed buprenorphine 8 mg-naloxone 2 mg 20 mg sublingual FROYLAN Y 04/27/22 04/27/22 sublingual film (Suboxone) Previous Rx's ?Medication ?Instructions ?Recorded clindamycin HCl 300 mg capsule 300 mg PO QID #40 caps 06/26/22 oxycodone 5 mg tablet 5 mg PO Q6H PRN pain #20 tab s 06/26/22 buprenorphine 8 mg-naloxone 2 mg 1 film buccal BID #2 ea 04/30/24 sublingual film (Suboxone) amoxicillin 875 mg-potassium 1 tab PO BID 7 days #14 t abs 06/14/24 clavulanate 125 mg tablet amoxicillin 875 mg-potassium 1 tab PO BID #20 tabs 09/29 clavulanate 125 mg tablet naproxen 500 mg tablet 500 mg PO BID 7 days #14 tab s 11/27/24 penicillin V potassium 500 mg 500 mg PO BID 10 days #2 0 tabs 11/27/24 tablet Allergies Allergy/AdvReac Type Severity Reaction Status Date / Time doxycycline AdvReac Vomiting Verified 11/27/24 01:56 Review of Systems Constitutional: Constitutional: Reports no additional constitutional complaints, Denies chills, Denies fever(s) and Denies night sweats Eyes: Eyes: Reports no additional eye complaints, Denies blurry vision, Denies change in vision, Denies diplopia, Denies eye discharge, Denies loss of vision and Denies eye pain ENT: Denies dizziness Comments: left lower dental pain / swelling Cardiovascular: Cardiovascular: Reports no additional cardiovascular com plaints, Denies chest pain, Denies lightheadedness, Denies Loss of Consciousness and Denies dyspnea Respiratory: Respiratory: Reports no additional respiratory complaints and Denies dyspnea Gastrointestinal: Gastrointestinal: Reports no additional gastrointestinal complaints, Denies abdominal pain, Denies melena, Denies hematochezia, Denies change in bowel habits and Denies change in stool character Genitourinary: Genitourinary: Reports no additional male genitourinary complaints, Denies hematuria, Denies oliguria, Denies difficulty urinating, Denies dysuria, Denies urinary frequency, Denies urinary hesitancy, Denies urinary incontinence and Denies urinary urgency Musculoskeletal: Musculoskeletal: Reports no additional musculoskeletal complaints, Denies numbness and Denies tingling Neurologic: Denies dizziness, Denies loss of vision, Denies numbness and Denies tingling Psychiatric: Psychiatric: Reports no additional psychiatric complaints Endocrine: Endocrine: Reports no additional endocrine complaints Hematologic/Lymphatic: Hematologic/Lymphatic: Reports no additional hematologic/lymphatic complaints Allergic/Immunologic: Allergic/Immunologic: Reports no additional allergic/immunologic complaints PMFSH Past Medical History Attestation statement: The following information was validated with the patient. Source: old records reviewed and nursing notes reviewed Medical History Smoking No known health problems Surgical History H/O excision of mass [place] teeth removed Family History Family History Paternal Grandmother Breast cancer Paternal Aunt Breast cancer Father Lymphoma Social History Social History Unable to assess alcohol history related to: Unknown Alcohol intake: former Patient Tobacco Use Status: Former Tobacco user Substance Use Type: Marijuana Advance Directives: No Advance Directives Information Provided: No Do you have a plan to hurt others: No Plan Physical Exam ED Vital Signs: Vital Signs - 24 hr 11/27/24 01:53 Temperature 97.6 F Pulse Rate 87 Respiratory Rate 16 Blood Pressure 117/74 Pulse Oximetry 97 Oxygen Delivery Method Room Air BMI result Body Mass Index 23.7 Const General: cooperative, no acute distress, alert and awake Nutritional Appearance: well nourished Orientation/consciousness: patient oriented x3 HENMT Head: Yes normal to inspection and Yes atraumatic Ears: hearing grossly normal bilaterally and external ears normal General nose exam: Normal external nose present, no nasal discharge noted and no epistaxis Face and sinus: Yes normal facial exam, No abrasion and No laceration Mouth: Normal oral and palatal mucosa present, no drooling and no muffled voice Teeth and gingiva: poor dentition and other (17, 18, 19 have surrounding erythema but no fluctuance with dental caries) Eyes General: appearance normal, both eyes and all related structures Periorbital: periorbital findings normal Eyelids: Yes eyelids normal Conjunctivae: conjunctivae normal Pupils: Equal, round and reactive pupils present EOM: EOMs intact bilaterally Neck Neck: Yes normal visual inspection, Yes full ROM and Yes no lymphadenopathy Resp Effort & Inspection: normal respiratory effort and able to speak in complete sentences Neuro General: patient oriented x3, moves all extremities and CN's II-XI intact bilaterally Cranial nerves: Yes Equal, round and reactive pupils present Cognition (Neuro): normal cognition Extrem General: Yes normal to inspection, Yes full ROM and Yes capillary refill normal Psych Appearance: grossly normal Mental Status: mental status grossly normal Affect: normal affect Attitude: cooperative Thought process: Normal thought process present Thought content: Normal thought content present Insight: Good insight present (Psych) Medical Decision Making Medical Decision Making MDM Narrative: Patient is a 44 year old assigned male at with a history of poor dentition presenting to the emergency department today with left lower dental pain / infection. Patient's physical exam was as noted in the physical exam portion of this note. Patient's clinical presentation is most consistent with a left lower dental infection but no drainable abscess. I explained my physical exam findings to the patient. I answered all questions asked by the patient. I stressed the importance of the patient taking his medication as directed (either prescribed or as the over the counter packaging recommends). I stressed the importance of the patient following up with his primary care provider and his dentist as scheduled. I stressed the importance of the patient returning to the emergency department immediately if his symptoms were to worsen or if he were to develop any dizziness, shortness of breath, difficulty breathing, chest pain, blurry vision, loss of vision, nausea, vomiting, abdominal pain, fever, chills, back pain, or any other complaints. Patient verbalized agreement and understanding with this treatment plan and discharge. Differential Diagnosis Differential Diagnoses: The differential diagnosis associated with the presentat ion includes Left sided dental pain Left sided dental infection Admission/Observation Consideration of admission/observation: Escalation of care including admission/observation considered Patient would have been admitted to the hospital had his clinical presentation warranted hospital admission. Prescription Management I considered prescription management with: Pain Medication (Patient prescribed pain medication) and Antibiotic (Patient prescribed antibiotic for left lower dental infection) Discharge Plan Discharge Clinical Impression: Dental abscess, Dental caries Patient Disposition: Home, Self-Care Instructions: Dental Abscess (ED) Additional Instructions: Follow up with your primary care provider and your dentist. Return to the emergency department immediately if your symptoms worsen or if you develop any numbness, tingling, dizziness, shortness of breath, difficulty breathing, chest pain, blurry vision, loss of vision, nausea, vomiting, abdominal pain, fever, chills, back pain, or any other complaints. Please see the information below about our Patient Portal. If you are not yet enrolled in the [facility] Patient Portal, you will receive an enrollment email invitation following your visit to any [facility] setting. You may also self-enroll in the Patient Portal by visiting our website: [email or web address] The following information is required to access the Patient Portal: - Your [facility] Medical Record Number - Your personal home email address (must match what is in your electronic medical record, Registration staff can assist with this) - Name - Date of Capabilities of the Patient Portal: - Message some providers - View upcoming appointments - Access your health summary, medical history, and visit history - View current conditions and allergies - View procedure and lab results - View your medications, including guidelines, side effects, and precautions - Complete pre-appointment questionnaires requested by your provider - Ready summary reports of your office visits and procedures To access the Patient Portal Mobile Patricia, follow these directions: - Search [employer] in the Patricia Store or [employer] Store - Download the Patricia - Search for [facility] - Enter your login/password Prescriptions: New penicillin V potassium 500 mg tablet 500 mg PO BID 10 Days Qty: 20 0RF naproxen 500 mg tablet 500 mg PO BID 7 Days Qty: 14 0RF No Action clindamycin HCl 300 mg capsule 300 mg PO QID Qty: 40 0RF oxycodone 5 mg tablet 5 mg PO Q6H PRN (Reason: pain) Qty: 20 0RF Rx Instructions: Partial Fill upon patient request. amoxicillin-pot clavulanate 875-125 mg tablet 1 tab PO BID 7 Days Qty: 14 0RF amoxicillin-pot clavulanate 875-125 mg tablet 1 tab PO BID Qty: 20 0RF buprenorphine-naloxone [Suboxone] 8-2 mg film 1 film buccal BID Qty: 2 0RF buprenorphine-naloxone [Suboxone] 8-2 mg film 20 mg sublingual DAILY Referrals: Esthela Randolph MD [Primary Care Provider, Internal Medicine] Print Language: [place] R[place]
[2024-11-27] MEDS: NaPROXEN 500 MG TABLET PO (03:05)
[2024-11-27] MEDS: Penicillin V Potassium 250 MG TABLET 500 MG PO (03:06)
[2024-11-27 03:15] VITALS: BP 00/00; PULSE 0; RESP 0; TEMP -17.7; TEMP 0; O2SAT 0
== END 2024-11-27 03:15 | disposition home or self-care (01) ==
PROVIDERS: Emergency Provider Internal Medicine; PCP Student in an Organized Health Care Education/Training Program
DX: K04.7 Periapical abscess without sinus (principal); K02.9 Dental caries, unspecified; Z79.899 Other long term (current) drug therapy; Z87.891 Personal history of nicotine dependence
CPT/HCPCS: 99283

== ENCOUNTER 2025-01-12 00:19 | Emergency (ER) | payer OTHER, SELFPAY ==
[2025-01-12 00:28] VITALS: BP 116/70; PULSE 80; RESP 16; TEMP 36.3; O2SAT 95; BMI 22.1
--- OUTSIDE RECORDS SUMMARY | 2025-01-12 01:02 | XMS_ITS | Clinical Summary ---
Author Organization [employer] Address [address] [facility] [address] [place] [address] Care Team Providers Care Can Feeder Name Role Phone Esthela Randolph MD Primary Care Provider [phone] Allergies Active Allergy Reactions Criticality Noted Date Comments Doxycycline Nausea Only 08/28/2020 Medications buprenorphine-n aloxone (Suboxone) 12-3 MG per sublingual film Place under the tongue. Active ibuprofen 600 MG tablet Take 1 tablet (600 mg) by mouth every 6 (six) hours if needed for mild pain for up to 10 doses. 10 tablet 5 Active Additional Information Patient not taking.Reported on 10/25/2024 acetaminophen (Tylenol) 500 MG tablet Take 1 tablet (500 mg) by mouth every 6 (six) hours if needed for mild pain for up to 10 doses. 10 tablet 5 Active Additional Information Patient not taking.Reported on 10/25/2024 Active Problems Problem Noted Date Diagnosed Date Cigarette nicotine dependence without complicati on 04/19/2023 Basal cell carcinoma (BCC) of skin of face 11/05 Encounters Date Type Department Care Team Description 11/27/2024 Orders Only [facility] [address] [place] [address] Uday Middleton DMD 10/31/2024 1:00 PM EDT Office Visit [facility] [address] [place] [address] Uday Middleton DMD Symptomatic irreversible pulpitis (Primary Dx); Severe dental caries 10/31/2024 10:00 AM EDT Office Visit [facility] [address] [place] [address] Yusef Hatch 10/25/2024 3:15 PM EDT Office Visit [facility] [address] [place] [address] Tristin Mansfield BASHIR 10/23/2024 11:00 AM EDT Office Visit [facility] [address] [place] [address] Toshia Atkins 10/19/2024 Orders Only [facility] [address] [place] [address] Esthela Randolph MD 10/18/2024 Telephone [facility] [address] [place] [address] Esthela Randolph MD Medication Question from Last 3 Months Immunizations Immunization Administration Dates Next Due Tdap 04/19/2023 Social History Tobacco Use Types Packs/Day Years Used Date Smoking Tobacco: Every Day Cigarettes 1 29.6 Started: 1995 Tobacco Cessation:Ready to Q uit: Not Asked; Counseling Given: Not Answered Alcohol Use Standard Drinks/Week Comments Defer 0 (1 standard drink = 0.6 oz pur e alcohol) Depression Answer Date Recorded Patient Health Questionnaire-9 Score 0 08/23/2024 Patient Health Questionnaire-9 Score 0 08/23/2024 Last PHQ-9: Questionnaire Data Not on file 0 08/23/2024 Housing Stability Answer Date Recorded What is your housing situation today? I have tierney barton 08/23/[address] you li ve. Do you have problems with any of the following? None of the above 08/23/2024 Food Insecurity Answer Date Recorded Within the past 12 months, y ou worried that your food would run out before you got money to buy more: Never True 08/23/2024 Within the past 12 months,th e food you bought just didn't last and you didn't have enough money to get more: Never True Transportation Answer Date Recorded In the past 12 months, has l ack of transportation kept you from medical appts, meetings, work or from getting things needed for daily living? No 08/23/2024 Utilities Answer Date Recorded In the past 12 months, has t he electric, gas, oil or water company threatened to shut off services in your home? No 08/23/2024 Depression Answer Date Recorded Patient Health Questionnaire-2 Score 0 08/23/2024 Internet Access Answer Date Recorded Internet Access Q1 No 08/23/2024 Internet Access Q2 I do not want or need it 08/05 Sex and Gender Information Value Date Recorded Sex Assigned at Male 04/06/2022 10:31 AM EDT Legal Sex Male 10:31 AM EDT Gender Identity Male 04/06/2022 10:31 AM EDT Sexual Orientation Straight 04/06/2022 10 :31 AM EDT Last Filed Vital Signs Vital Sign Reading Time Taken Comments Blood Pressure 94/68 10/31/2024 1:04 PM EDT Pulse 65 10/31/2024 9:59 AM EDT Temperature 36.3 C (97.3 F) 08/23/2024 8:43 AM EDT Respiratory Rate 18 08/23/2024 8:43 AM EDT Oxygen Saturation 98% 08/23/2024 8:43 AM EDT Inhaled Oxygen Concentration - - Weight 70.8 kg (156 lb) 08/23/2024 8:43 AM EDT Height 176.5 cm (5' 9.5 ) 08/23/2024 8:43 AM EDT Body Mass Index 22.71 08/23/2024 8:43 AM EDT Plan of Treatment Upcoming Encounters Date Type Department Care Team (Late st Contact Info) Description 01/16/2025 9:00 AM EDT Office Visit [facility] [address] [place] [address] Uday Middleton, DMD [address] [place] [address] Health Maintenance Due Date Last Done Comments HIV Screening 1981 Lipid Panel 1981 Derm Melanoma Skin Check 1981 Family Planning (PISQ) 02/15/1996 HPV Vaccines (1 - Male 3-dose series) 02/15/1996 Hepatitis C Screening 1999 Hepatitis B Vaccines (1 of 3 - 19+ 3-dose series) 02/15/2000 Pneumococcal Vaccine: Pediatrics (0 to 5 Years) and At-Risk Patients (6 to 49) Years (1 of 2 - PCV) 02/15/2000 Dental Prophylaxis 04/23/2017 10/20/2016 Dental X-Ray: Full Mouth 10/02/2023 021, 07/25/2020, 09/29/2016 Influenza Vaccine (#1) 2025 Dental Oral Exam 05/04/2025 10/31/2024, 11/2021, 09/30/2020, Additional history exists Alcohol/Substance Use Screening 08/23/2025 08/23/2024 COVID-19 Vaccine ( season) 2025 Postponed from 02/06/2024 (Patient Refused) Depression Screening 08/23/2025 08/23/2024, 08/24/19 Disability Screening 08/23/2025 08/23/2024 SDOH Screening 08/23/2025 08/23/2024 Tobacco Screening 10/31/2025 10/31/2024 Dental X-Ray: Bitewings 11/01/2025 11/01/19, 10/23/2024, 03/12/2022, Additional history exists Zoster Vaccines (1 of 2) 2031 DTaP/Tdap/Td Vaccines (2 - Td or Tdap) 04/19/2033 04/19/2023 RSV Patients and Patients Aged 60 years or older (1 - 1-dose 75+ series) 02/15/2056 HIB Vaccines Aged Out No longer eligi ble based on patient's age to complete this topic Hepatitis A Vaccines Aged Out No long er eligible based on patient's age to complete this topic IPV Vaccines Aged Out No longer eligi ble based on patient's age to complete this topic Meningococcal B Vaccine Aged Out No l onger eligible based on patient's age to complete this topic Meningococcal Vaccine Aged Out No kirk wendi eligible based on patient's age to complete this topic RSV under 20 months Aged Out No longe r eligible based on patient's age to complete this topic Rotavirus Vaccines Aged Out No longer eligible based on patient's age to complete this topic Procedures Procedure Name Priority Date/Time Associated Diagnosis Comments CASE PRESENTATION, DETAILED AND EXTENSIVE TREATMENT PLANNING Routine 10/31/2024 1:00 PM EDT Symptomatic irreversible pulpitis Severe dental caries 30 EXTRACTION, ERUPTED TOOTH REQ REMOVAL OF BONE AND/OR SECTIONING OF TOOTH Routine 10/31/2024 1:00 PM EDT Symptomatic irreversible pulpitis Severe dental caries 31 EXTRACTION, ERUPTED TOOTH OR EXPOSED ROOT (ELEVATION/FORCEPS REMOVAL) Routine 10/31/2024 1:00 PM EDT Symptomatic irreversible pulpitis Severe dental caries PERIODIC ORAL EVALUATION - ESTABLISHED PATIENT Routine 10/31/2024 10:00 AM EDT INTRAORAL - PERIAPICAL EACH ADDITIONAL RADIOGRAPHIC IMAGE Routine 10/31/2024 10:00 AM EDT INTRAORAL - PERIAPICAL FIRST RADIOGRAPHIC IMAGE Routine 10/31/2024 10:00 AM EDT BITEWINGS - 4 RADIOGRAPHIC IMAGES Routine 10/31/2024 10:00 AM EDT CASE PRESENTATION, DETAILED AND EXTENSIVE TREATMENT PLANNING Routine 10/31/2024 10:00 AM EDT CONSULTATION - DIAGNOSTIC SERVICE PROVIDED BY DENTIST OR PHYSICIAN OTHER THAN REQUESTING DENTIST OR PHYSICIAN Routine 10/25/2024 3:15 PM EDT CASE PRESENTATION, DETAILED AND EXTENSIVE TREATMENT PLANNING Routine 10/23/2024 11:00 AM EDT INTRAORAL - PERIAPICAL EACH ADDITIONAL RADIOGRAPHIC IMAGE Routine 10/23/2024 11:00 AM EDT INTRAORAL - PERIAPICAL EACH ADDITIONAL RADIOGRAPHIC IMAGE Routine 10/23/2024 11:00 AM EDT INTRAORAL - PERIAPICAL FIRST RADIOGRAPHIC IMAGE Routine 10/23/2024 11:00 AM EDT BITEWINGS - 2 RADIOGRAPHIC IMAGES Routine 10/23/2024 11:00 AM EDT LIMITED ORAL EVALUATION - PROBLEM FOCUSED Routine 10/23/2024 11:00 AM EDT INTRAORAL - COMPLETE SERIES OF RADIOGRAPHIC IMAGES Routine 09/30/2020 12:00 AM EDT PROPHYLAXIS - ADULT Routine 10/20/2016 1 2:00 AM EDT from Last 3 Months or Most Recently Relevant to Health Maintenance Insurance [facility] PL[facility] DENTAL - HSN PARTIAL (MEDICAID) * Guarantor: Cassius Wilks Account Type Relation to Patient Date of Phone Billing Address Personal/Family Self [phone] Care Teams Can Feeder Relationship Specialty Start Date End Date Esthela Randolph MD [address] [place] [id number] PCP - General Family Medicine 08/03/16
--- OUTSIDE RECORDS SUMMARY | 2025-01-12 01:02 | XMS_ITS | Clinical Summary ---
Author Organization [facility] Address [address] [place] [address] Care Team Providers Care Steam Box Tender Name Role Phone Mansoor Hatch Primary Care Provider [phone] Allergies Active Allergy Reactions Criticality Noted Date Comments Doxycycline Nausea 08/28/2020 Medications No known medications Active Problems No known active problems Social History Tobacco Use Types Packs/Day Years Used Date Smoking Tobacco: Never Assessed Sex and Gender Information Value Date Recorded Sex Assigned at Not on file Legal Sex Male 10:22 AM EST Gender Identity Not on file Sexual Orientation Not on file Last Filed Vital Signs Vital Sign Reading Time Taken Comments Blood Pressure 104/64 08/28/2020 1:04 PM EDT Pulse 84 08/28/2020 1:04 PM EDT Temperature - - Respiratory Rate - - Oxygen Saturation - - Inhaled Oxygen Concentration - - Weight 70.3 kg (155 lb) 08/28/2020 1:04 PM EDT Height 180.3 cm (5' 11 ) 08/28/2020 1:04 PM EDT Body Mass Index 21.62 08/28/2020 1:04 PM EDT Plan of Treatment Health Maintenance Due Date Last Done Comments HIV Screening 1981 Varicella Vaccines (1 of 2 - 13+ 2-dose series) 1994 Hepatitis B Vaccines (1 of 3 - 19+ 3-dose series) 02/15/2000 DTaP,Tdap,and Td Vaccines (1 - Tdap) 2003 COVID-19 Vaccine ( - 2023-2 5 season) 2024 Alcohol/Substance Use Screening 06/07/2024 Influenza Vaccine (#1) 2025 RSV Vaccine (60+ years old a nd patients) (1 - 1-dose 75+ series) 02/15/2056 Pneumococcal Vaccine: Pediat walker (0-5 Years) and At-Risk Patients (6-50 Years) Aged Out No longer eligible b ased on patient's age to complete this topic Insurance [employer] Care Teams Steam Box Tender Relationship Specialty Start Date End Date Mansoor Hatch [address] [place] [id number] PCP - General Internal Medicine 08/16/20
--- NOTE | 2025-01-12 01:59 | PC.NURSE ---
Pt requesting to leave. 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 T/w asked Meliton to see patient as he was requesting to leave. As I was walking towards [facility], registration let me know that the patient followed EMS out the ambulance entrance and left the facility.
== END 2025-01-12 02:01 | disposition left against medical advice (07) ==
PROVIDERS: Emergency Provider Emergency Medicine; PCP Student in an Organized Health Care Education/Training Program
DX: K08.89 Other specified disorders of teeth and supporting structures (principal); Z53.21 Procedure and treatment not carried out due to patient leaving prior to being seen by health care provider
CPT/HCPCS: 99281